=== PATIENT | male | born 1985 | race Caucasian/White ===

== ENCOUNTER 2017-10-12 19:38 | Emergency (ER) | payer OTHER ==
[~2017-10-12] VITALS: Ht 177.8 cm; Wt 102.4 kg
[~2017-10-12 19:38] MED LIST: DICL-201 PO; DULO60CA44 PO; ERGO500037 PO
[2017-10-12 19:40] VITALS: TEMP 36.6; Ht 177.8 cm; Wt 102.4 kg
[2017-10-12] MEDS ORDERED: HYDROmorphone INJ 0.5 MG/0.5 ML SYR IV STA (20:06)
[2017-10-12] MEDS ORDERED: ONDANSETRON INJ 2 MG/ML 2 ML VIAL IV STA (20:06)
[2017-10-12] MEDS ORDERED: SODIUM CHLORIDE 0.9% 1000ML 1,000 ML IV STA (20:06)
[2017-10-12] MEDS ORDERED: OPTIRAY 320 IV PRN (20:15)
--- NOTE | 2017-10-12 20:15 | EMERGENCY ROOM VISIT NOTE ---
History Report prepared by Jayme: Derick Crystal Under the Supervision of: Dr. Tl Oshea M.D. First contact with patient: 19:46 Chief Complaint: GI ASSESSMENT Stated Complaint: BLOODY STOOL, ABD PAIN History of Present Illness The patient is a 31 year old white male with a past medical history of complex regional pain syndrome, hemorrhoids, and mild diverticulitis who presents to the ED with a cc of waxing/waning lower left quadrant abdominal pain beginning this morning. He rates his discomfort as a 9/10 in severity. The patient reports that he typically has pain in his left hip and leg due to his complex regional pain syndrome, but states "I believe it moved to my colon". The patient states he has been experiencing left lower quadrant abdominal pain all day with radiation to his anus. He reports that he recently had a blood bowel movement around 1530. The patient states that he normally has blood in his stool due to his history of hemorrhoids, but states that there was blood in the toilet this time. He reports that he took a Morphine 2 hours ago without any relief of symptoms.The patient states that the last time he had a bloody bowel movement similar to this one was three months ago. He reports he had a colonoscopy performed, which showed diverticulitis. Positive bloody bowel movement, anus pain. Negative recent antibiotic use, recent travel, drinking stream or well water, urinary symptoms, abdomen surgeries, nausea, vomiting, hernia, drug use. Source of History: patient Onset: this morning Position: abdomen (LLQ) Symptom Intensity: 9/10 Timing: waxes/wanes Modifying Factors (Relieving): other (Morphine) Associated Symptoms: No nausea, No vomiting, No urinary symptoms Note: Positive bloody bowel movement, anus pain. Review of Systems See HPI for pertinent positives and negatives. A total of ten systems were reviewed and were otherwise negative. Past Medical & Surgical Medical Problems: (1) Anxiety disorder (2) Chronic back pain (3) Depressive disorder Surgical Problems: (1) History of tonsillectomy and adenoidectomy Family History Lung disease Social History Smoking Status: Never Smoker Drug Use: none Marital Status: , other Housing Status: lives with family Occupation Status: disabled Current/Historical Medications Scheduled Duloxetine Hcl (Cymbalta), 1 CAP PO DAILY Ergocalciferol (Vitamin D 85996 Unit), 1 CAP PO WK Prednisone (Prednisone), 0 PO DAILY Scheduled PRN Diclofenac (Voltaren), 75 MG PO BID PRN for prn Morphine Sulfate Ir (Morphine Sulfate Ir), 15 MG PO BID PRN for Pain Allergies Coded Allergies: No Known Allergies (Unverified , 11/23/15) Physical Exam Vital Signs Date Time Temp Pulse Resp B/P (MAP) Pulse Ox O2 Delivery O2 Flow Rate FiO2 10/12/17 22:31 89 18 132/77 97 10/12/17 21:45 100 18 152/97 96 Room Air 10/12/17 19:40 36.6 120 16 153/93 97 Room Air Physical Exam GENERAL: Awake, alert, well-appearing, mild distress, mild pain. HENT: Normocephalic, atraumatic. EYES: Normal conjunctiva. Sclera non-icteric. NECK: Supple. No nuchal rigidity. FROM. RESPIRATORY: CTAB, no rhonchi, wheezing, crackles CARDIAC: RRR, no MRG ABDOMEN: Soft, LLQ TTP, ND, BS+, negative obturator's, negative psoas. MSK: No chest wall TTP, no LE edema NEURO: GCS 15, CN 2-12 intact, moves all 4s on command SKIN: No rash or jaundice noted. Medical Decision & Procedures ER Provider Diagnostic Interpretation: Radiology results as stated below per my review and radiologist interpretation: ABDOMEN AND PELVIS CT WITHOUT CONTRAST CT DOSE: 714.06 mGy.cm HISTORY: prior h/o diverticulitis, bloody BM, left lower quadrant abdominal pain., creat 1.7 TECHNIQUE: Multiaxial CT images of the abdomen and pelvis were performed without contrast. A dose lowering technique was utilized adhering to the principles of ALARA. COMPARISON STUDY: None. FINDINGS: The lung bases are clear. No pneumoperitoneum. No pneumatosis. No fractures within the visualized osseous structures. Tiny fat-containing umbilical hernia. The unenhanced liver, spleen, adrenal glands, pancreas, and kidneys are unremarkable. No renal or ureteral calculi. No retroperitoneal lymphadenopathy. Moderate bladder wall thickening. No pelvic free fluid. Suboptimal evaluation for bowel pathology due to the lack of intravenous and oral contrast. However, there is no definite bowel wall thickening or obstruction. A few scattered colonic diverticula. No evidence for diverticulitis. Normal appendix. IMPRESSION: 1. No bowel wall thickening or obstruction. 2. Normal appendix. 3. A few scattered colonic diverticula. 4. Moderate bladder wall thickening. This may be due to underdistention. Recommend correlation with urinalysis to exclude a cystitis. Electronically signed by: Jerzy Cruz M.D. 10/12/2017 9:20 PM Dictated Date/Time: 10/12/2017 9:12 PM Laboratory Results 10/12/17 20:30 Red Blood Count 5.33, Mean Corpuscular Volume 84.4, Mean Corpuscular Hemoglobin 30.0, Mean Corpuscular Hemoglobin Concent 35.6, Mean Platelet Volume 9.7, Neutrophils (%) (Auto) 57.5, Lymphocytes (%) (Auto) 30.1, Monocytes (%) (Auto) 10.6, Eosinophils (%) (Auto) 1.0, Basophils (%) (Auto) 0.6, Neutrophils # (Auto ) 5.66, Lymphocytes # (Auto) 2.96, Monocytes # (Auto) 1.04, Eosinophils # (Auto ) 0.10, Basophils # (Auto) 0.06 10/12/17 20:30 Test 10/12/17 20:30 10/12/17 20:38 White Blood Count 9.84 K/uL (4.8-10.8) Red Blood Count 5.33 M/uL (4.7-6.1) Hemoglobin 16.0 g/dL (14.0-18.0) Hematocrit 45.0 % (42-52) Mean Corpuscular Volume 84.4 fL (80-100) Mean Corpuscular Hemoglobin 30.0 pg (25-34) Mean Corpuscular Hemoglobin Concent 35.6 g/dl (32-36) Platelet Count 308 K/uL (130-400) Mean Platelet Volume 9.7 fL (7.4-10.4) Neutrophils (%) (Auto) 57.5 % Lymphocytes (%) (Auto) 30.1 % Monocytes (%) (Auto) 10.6 % Eosinophils (%) (Auto) 1.0 % Basophils (%) (Auto) 0.6 % Neutrophils # (Auto) 5.66 K/uL (1.4-6.5) Lymphocytes # (Auto) 2.96 K/uL (1.2-3.4) Monocytes # (Auto) 1.04 K/uL (0.11-0.59) Eosinophils # (Auto) 0.10 K/uL (0-0.5) Basophils # (Auto) 0.06 K/uL (0-0.2) RDW Standard Deviation 45.3 fL (36.4-46.3) RDW Coefficient of Variation 14.7 % (11.5-14.5) Immature Granulocyte % (Auto) 0.2 % Immature Granulocyte # (Auto) 0.02 K/uL (0.00-0.02) Est Creatinine Clear Calc Drug Dose 89.3 ml/min Estimated GFR () 74.4 Estimated GFR (Non- 64.2 BUN/Creatinine Ratio 10.4 (10-20) Calcium Level 9.4 mg/dl (8.5-10.1) Total Bilirubin 0.4 mg/dl (0.2-1) Direct Bilirubin 0.1 mg/dl (0-0.2) Aspartate Amino Transf (AST/SGOT) 32 U/L (15-37) Alanine Aminotransferase (ALT/SGPT) 55 U/L (12-78) Alkaline Phosphatase 65 U/L (45-117) Total Protein 7.7 gm/dl (6.4-8.2) Albumin 4.1 gm/dl (3.4-5.0) Lipase 169 U/L (73-393) Bedside Hemoglobin 15.3 g/dl (14.0-18.0) Bedside Hematocrit 45 % (42-52) Bedside Sodium 141 mEq/L (135-144) Bedside Potassium 3.9 mEq/L (3.3-5.0) Bedside Chloride 100 mEq/L (101-112) Bedside Total CO2 27 mEq/l (24-31) Anion Gap 19.0 mmol/L (16-25) Bedside Blood Urea Nitrogen 16 mg/dl (7-18) Bedside Creatinine 1.7 mg/dl (0.6-1.3) Bedside Glucose (other) 99 mg/dl (70-99) Bedside Ionized Calcium (Isaias) 1.18 mmol/l (1.12-1.32) Laboratory results reviewed by me Medications Administered Medications (Trade) Dose Ordered Sig/Davina Route Start Time Stop Time Status Last Admin Dose Admin Sodium Chloride 1,000 ml @ 999 mls/hr Q1H1M STAT IV 10/12/17 20:06 10/12/17 21:06 DC 10/12/17 20:38 999 MLS/HR Ondansetron HCl (Zofran Inj) 4 mg NOW STAT IV 10/12/17 20:06 10/12/17 20:09 DC 10/12/17 20:38 4 MG Hydromorphone HCl (Dilaudid Inj) 0.5 mg NOW STAT IV 10/12/17 20:06 10/12/17 20:09 DC 10/12/17 20:39 0.5 MG Prednisone (PredniSONE TAB) 50 mg NOW STAT PO 10/12/17 20:58 10/12/17 20:59 DC 10/12/17 21:37 50 MG Hydromorphone HCl (Dilaudid Inj) 1 mg NOW STAT IV 10/12/17 21:27 10/12/17 21:29 DC 10/12/17 21:38 1 MG Lidocaine HCl (Viscous Lidocaine 2% Soln) 20 ml STK-MED ONCE .ROUTE 10/12/17 21:34 10/12/17 21:35 DC 10/12/17 21:39 20 ML Al Hydroxide/Mg Hydroxide (Maalox Susp) 30 ml STK-MED ONCE .ROUTE 10/12/17 21:34 10/12/17 21:35 DC 10/12/17 21:39 30 ML ECG Per My Interpretation Indication: abdominal pain Rate (beats per minute): 102 Rhythm: sinus tachycardia Findings: T-wave inversion (Lead III), other (Normal intervals, Normal axis, No other ST changes or TWI) ED Course 1955: The patient was evaluated in room C04. A complete history and physical exam was performed. 2225: I reevaluated the patient. Discussed results and discharge instructions: He verbalized understanding and agreement. The patient is ready for discharge. Medical Decision Prior records/ancillary studies reviewed. Triage Nursing notes reviewed. The patient is a 31 year old white male with a past medical history of complex regional pain syndrome, hemorrhoids, and mild diverticulitis who presents to the ED with a cc of waxing/waning lower left quadrant abdominal pain beginning this morning. Differential diagnosis: Etiologies such as appendicitis, diverticulitis, PUD, biliary pathology, UTI, pancreatitis, obstruction, mesenteric ischemia, aortic pathology, infections, inflammatory bowel disease, renal colic, as well as others were entertained. Prior records were reviewed. Patient was seen and evaluated the bedside. Patient does have a history of CRPS. Patient does take chronic p.o. morphine. Patient does state that he has had some bloody bowel movements before but noticed that he had it again today. Patient did have a colonoscopy which did have a biopsy which she states was negative for Crohn's or ulcerative colitis. He does have a history of diverticulitis. Patient does complain of some left lower quadrant discomfort. Patient has no right lower quadrant discomfort. Patient did have blood work completed along with a CT of the abdomen pelvis. Patient was given medications to help with pain control. Patient's blood work is fairly unremarkable. Patient had a normal H&H and platelet count. Patient' s BUN is not elevated. Less likely upper GI bleed. Patient does have history of hemorrhoids. This may be a recurrence of possible diverticulitis. Patient did have a mildly elevated creatinine so a CT Noncon was ordered in place of the CT with contrast. Patient's CT showed a normal appendix and no signs of diverticulitis. No evidence of bowel obstruction. Upon reassessment the patient was feeling improved. Do not believe the patient requires further evaluation or treatment at this time. Patient was given prednisone as he states that it helps. Patient was given a prednisone taper was told to continue to take Tylenol in addition to his chronic pain meds. Patient was told to follow-up with his PCP. Patient was given strict follow-up, discharge, and return precautions. All questions were answered. Patient was deemed suitable for outpatient follow-up at this time. Patient agreed with the plan of care and was safely discharged home. Medication Reconcilliation Current Medication List: was personally reviewed by me Blood Pressure Screening Patient's blood pressure: Elevated blood pressure Blood pressure disposition: Referred to PCP Impression Primary Impression: Rectal bleeding Scribe Attestation The scribe's documentation has been prepared under my direction and personally reviewed by me in its entirety. I confirm that the note above accurately reflects all work, treatment, procedures, and medical decision making performed by me. Departure Information Dispostion Home / Self-Care Prescriptions Prednisone (Prednisone) 20 Mg Tab 0 PO DAILY, #18 TAB 3 DAILY FOR 3 DAYS, THEN 2 DAILY FOR 3 DAYS, THEN 1 DAILY FOR 3 DAYS. Prov: Tl Oshea M.D. 10/12/17 Referrals No Doctor, Assigned (PCP) Patient Instructions Bleeding Rectal, My [facility] [employer] Additional Instructions Please return to the emergency department if you have worsening or recurrent symptoms not amenable to at-home treatment. Please call for a follow-up appointment with her primary care physician. Please take your medications as prescribed. If you have other concerns and/or complaints please feel free to also call your primary care physician's office or return the ED for further evaluation, management, and treatment. You were found to have an elevated blood pressure today (>120 sytolic or >90 diastolic). Per medicare guidelines, you need to follow up with this blood pressure screening with your Primary Care Physician (PCP). For a new PCP call [phone]. You received narcotic or benzodiazepene medication while in the emergency room today. This is an addictive medication that may cause drowziness as well as constipation. Do not drive, operate heavy machinery, or drink alcohol under the influence of this medication. You may take tylenol 1000 mg every 6 hours as needed for pain. Consider taking her steroids preferably in the morning and with food. As it may cause you to be hyperactive and cause upset stomach. To help avoid any GI upset consider taking Pepcid 20 mg twice daily. Take your medications as prescribed. You have been examined and treated today on an emergency basis only. This is not a substitute for, or an effort to provide, complete comprehensive medical care. It is impossible to recognize and treat all injuries or illnesses in a single emergency department visit. It is therefore important that you follow up closely with [facility], your PCP, and/or your specialist(s). Call as soon as possible for an appointment. Thank you for your time and consideration. I look forward to speaking with you again soon. Please don't hesitate to call us if you have any questions.
[2017-10-12 20:44] LABS: BASO % 0.6 %; BASO ABS # 0.06 K/uL (0-0.2); IG# 0.02 K/uL (0.00-0.02); LYMPH % 30.1 %; LYMPH ABS # 2.96 K/uL (1.2-3.4); MEAN CELL VOLUME 84.4 fL (80-100); MEAN CORPUSCULAR HGB CONC 35.6 g/dl (32-36); MEAN PLATELET VOLUME 9.7 fL (7.4-10.4); MONO % 10.6 %; MONO ABS # 1.04 K/uL (0.11-0.59); NEUT % 57.5 %; NEUT ABS # 5.66 K/uL (1.4-6.5); PLATELET COUNT 308 K/uL (130-400); RED CELL DISTRIBUTION WIDTH CV 14.7 % (11.5-14.5); RED CELL DISTRIBUTION WIDTH SD 45.3 fL (36.4-46.3); WHITE BLOOD COUNT 9.84 K/uL (4.8-10.8)
[2017-10-12 20:53] LABS: ISTAT CREATININE 1.7 mg/dl (0.6-1.3); ISTAT IONIZED CALCIUM 1.18 mmol/l (1.12-1.32); ISTAT POTASSIUM 3.9 mEq/L (3.3-5.0)
[2017-10-12 21:02] LABS: ALBUMIN 4.1 gm/dl (3.4-5.0); CALCIUM 9.4 mg/dl (8.5-10.1); CREATININE 1.45 mg/dl (0.60-1.40); POTASSIUM 3.8 mmol/L (3.5-5.1)
[2017-10-12 21:05] LABS: TOTAL PROTEIN 7.7 gm/dl (6.4-8.2)
--- NOTE | 2017-10-12 21:21 | DIAGNOSTIC IMAGING REPORT ---
ABDOMEN AND PELVIS CT WITHOUT CONTRAST CT DOSE: 714.06 mGy.cm HISTORY: prior h/o diverticulitis, bloody BM, left lower quadrant abdominal pain., creat 1.7 TECHNIQUE: Multiaxial CT images of the abdomen and pelvis were performed without contrast. A dose lowering technique was utilized adhering to the principles of ALARA. COMPARISON STUDY: None. FINDINGS: The lung bases are clear. No pneumoperitoneum. No pneumatosis. No fractures within the visualized osseous structures. Tiny fat-containing umbilical hernia. The unenhanced liver, spleen, adrenal glands, pancreas, and kidneys are unremarkable. No renal or ureteral calculi. No retroperitoneal lymphadenopathy. Moderate bladder wall thickening. No pelvic free fluid. Suboptimal evaluation for bowel pathology due to the lack of intravenous and oral contrast. However, there is no definite bowel wall thickening or obstruction. A few scattered colonic diverticula. No evidence for diverticulitis. Normal appendix. IMPRESSION: 1. No bowel wall thickening or obstruction. 2. Normal appendix. 3. A few scattered colonic diverticula. 4. Moderate bladder wall thickening. This may be due to underdistention. Recommend correlation with urinalysis to exclude a cystitis. Electronically signed by: Jerzy Cruz M.D. 10/12/2017 9:20 PM Dictated Date/Time: 10/12/2017 9:12 PM
[2017-10-12] MEDS ORDERED: HYDROmorphone INJ 1 MG/ML SYR IV STA (21:27)
[2017-10-12] MEDS ORDERED: GI COCKTAIL PO STA (21:27)
[2017-10-12] MEDS ORDERED: MORP15TA PO (21:33)
[2017-10-12] MEDS ORDERED: LIDOCAINE HCL 2% VISC SOLN 20 ML UDC ONE (21:34)
[2017-10-12] MEDS ORDERED: ALUMINUM/MAGNESIUM SUSP 30 ML UDC ONE (21:34)
[2017-10-12] MEDS ORDERED: PRED20TA PO (22:18)
[2017-10-12 22:31] VITALS: BP 132/77; PULSE 89; O2SAT 97
== END 2017-10-12 22:32 | disposition home or self-care (01) ==
LOC: C.EDB 19:39 → C.EDC 22:32
DX: K62.5 Hemorrhage of anus and rectum (principal); F41.9 Anxiety disorder, unspecified; M54.9 Dorsalgia, unspecified; G89.29 Other chronic pain; F32.9 Major depressive disorder, single episode, unspecified; K57.92 Diverticulitis of intestine, part unspecified, without perforation or abscess without bleeding; K64.9 Unspecified hemorrhoids; Z83.6 Family history of other diseases of the respiratory system; Z79.899 Other long term (current) drug therapy